=== PATIENT | female | born 1965 ===

== ENCOUNTER 2020-10-30 14:42 | Emergency (ER) | payer MEDICARE ==
[~2020-10-30] VITALS: Ht 160 cm; Wt 107.0 kg
== END 2020-10-30 16:34 | disposition home or self-care (01) ==
LOC: ER 14:42
DX: S29.012A Strain of muscle and tendon of back wall of thorax, initial encounter (principal); M54.5 Low back pain; G89.29 Other chronic pain; X50.1XXA Overexertion from prolonged static or awkward postures, initial encounter
CPT/HCPCS: 96372; 99282-25; J1885

== ENCOUNTER → 2020-12-10 | Outpatient (CLI) | payer MEDICARE, OTHER ==
[2020-12-15 16:10] LABS: HPV 16 Negative (Negative); HPV 18 Negative (Negative); HPV OTHER HR TYPES Negative (Negative)
== END | disposition home or self-care (01) ==
LOC: LAB SHORT 11:00 → LAB 11:00
PROVIDERS: Student in an Organized Health Care Education/Training Program
DX: Z01.419 Encounter for gynecological examination (general) (routine) without abnormal findings (principal)
CPT/HCPCS: 87624; G0145

== ENCOUNTER 2022-08-14 13:26 | Emergency (ER) | payer MEDICARE, OTHER ==
[~2022-08-14] VITALS: Ht 165.1 cm; Wt 68.0 kg
[~2022-08-14 13:26] MED LIST: HYDCOR2.5C PR; LISI5 PO; MIRALAX17 GM PO; OMEP20ER PO; OMEPRAZOLE DR 20 MG PO; PREGABALIN75 MG PO
[2022-08-14 14:13] LABS: BASOPHILS ABSOLUTE AUTO 0.06 K/mm3 (0.00-0.23); BASOPHILS PERCENT AUTO 1 % (0-2); EOSINOPHILS ABSOLUTE AUTO 0.19 K/mm3 (0.00-0.68); EOSINOPHILS PERCENT AUTO 3 % (0-6); Hematocrit 38.7 % (33.0-51.0); Hemoglobin 13.4 g/dL (11.5-16.0); IMMATURE GRAN ABSOLUTE AUTO 0.07 K/mm3 (0.00-0.10); IMMATURE GRAN PERCENT AUTO 1 % (0-1); LYMPHOCYTES ABSOLUTE AUTO 1.94 K/mm3 (0.84-5.20); LYMPHOCYTES PERCENT AUTO 28 % (21-46); MONOCYTES ABSOLUTE AUTO 0.64 K/mm3 (0.16-1.47); MONOCYTES PERCENT AUTO 9 % (4-13); Mean Corpuscular HGB Conc 34.6 g/dL (31.5-36.5); Mean Corpuscular Volume 87 fL (80-100); Mean Platelet Volume 10.7 fL (9.1-12.4); NEUTROPHILS ABSOLUTE AUTO 4.14 K/mm3 (1.96-9.15); NEUTROPHILS PERCENT AUTO 59 % (41-73); Platelet Count 248 K/mm3 (150-400); RDW Coefficient Variation 13.2 % (11.7-14.2); RDW Standard Deviation 42.1 fL (35.1-46.3); Red Blood Cell Count 4.46 M/mm3 (3.80-5.20); White Blood Cell Count 7.04 K/mm3 (4.00-11.30)
[2022-08-14 14:16] LABS: Albumin, Blood 3.5 g/dL (3.4-5.0); Bilirubin, Total 0.3 mg/dL (0.1-1.0); Bun/Creatinine Ratio 22.3 (12.0-20.0); Calcium, Blood 8.8 mg/dL (8.5-10.1); Creatinine, Blood 0.76 mg/dL (0.40-1.00); Globulin, Blood 3.6 g/dL (2.2-4.0); Potassium, Blood 3.9 mmol/L (3.5-5.5); Total Protein, Blood 7.1 g/dL (6.4-8.2)
[2022-08-14] MEDS ORDERED: GABAPENTIN600 MG PO (14:21)
[2022-08-14] MEDS ORDERED: CYCL10 PO (14:22)
[2022-08-14] MEDS ORDERED: CALCIUM 500 MG1 EAC2 PO (14:24)
[2022-08-14] MEDS ORDERED: FISH OIL 1,2001 EAC7 PO (14:24)
[2022-08-14 16:05] LABS: Source, Urine Straight Cath
[2022-08-14 16:13] LABS: Appearance, Urine Clear (Clear); Bilirubin, Urine Neg (Neg); Blood, Urine 1+ (Neg); Color, Urine Yellow (P-Yellow); Glucose Qualitative, Urine Neg (Neg); Ketones, Urine Neg (Neg); Leukocyte Esterase, Urine Neg (Neg); Nitrite, Urine Neg (Neg); Protein, Urine Neg (Neg); Specific Gravity, Urine 1.015 (1.003-1.022); Urobilinogen, Urine NORM (Normal)
[2022-08-14 16:53] LABS: Bacteria Few /hpf; Squamous Epithelial Cells Few /hpf (Few); White Blood Cells, Urine 0-2 /hpf (0-5)
[2022-08-20] MEDS ORDERED: ACETAMIN-CODE12.5 M3 PO (16:28)
== END 2022-08-14 18:26 | disposition home or self-care (01) ==
LOC: ER 13:26
PROVIDERS: Emergency Medicine; Student in an Organized Health Care Education/Training Program
DX: R25.1 Tremor, unspecified (principal); Z79.899 Other long term (current) drug therapy
CPT/HCPCS: 51701; 70450; 71045; 80053; 81001; 84484; 85025; 93005; 93010; 99285-25

== ENCOUNTER 2022-08-27 14:10 | Inpatient (IN) | payer MEDICARE, OTHER ==
[~2022-08-27] VITALS: Ht 162.6 cm; Wt 104.6 kg
[~2022-08-27 14:10] MED LIST changes: +ACETAMIN-CODE12.5 M3 PO; +CALCIUM 500 MG1 EAC2 PO; +CYCL10 PO; +FISH OIL 1,2001 EAC7 PO; +GABAPENTIN600 MG PO
[2022-08-27 15:46] LABS: BASOPHILS ABSOLUTE AUTO 0.04 K/mm3 (0.00-0.23); BASOPHILS PERCENT AUTO 1 % (0-2); EOSINOPHILS ABSOLUTE AUTO 0.18 K/mm3 (0.00-0.68); EOSINOPHILS PERCENT AUTO 2 % (0-6); Hematocrit 36.8 % (33.0-51.0); Hemoglobin 12.7 g/dL (11.5-16.0); IMMATURE GRAN ABSOLUTE AUTO 0.08 K/mm3 (0.00-0.10); IMMATURE GRAN PERCENT AUTO 1 % (0-1); LYMPHOCYTES ABSOLUTE AUTO 2.53 K/mm3 (0.84-5.20); LYMPHOCYTES PERCENT AUTO 32 % (21-46); MONOCYTES ABSOLUTE AUTO 0.59 K/mm3 (0.16-1.47); MONOCYTES PERCENT AUTO 8 % (4-13); Mean Corpuscular HGB 30.3 pg (26.0-34.0); Mean Corpuscular HGB Conc 34.5 g/dL (31.5-36.5); Mean Corpuscular Volume 88 fL (80-100); Mean Platelet Volume 10.4 fL (9.1-12.4); NEUTROPHILS ABSOLUTE AUTO 4.49 K/mm3 (1.96-9.15); NEUTROPHILS PERCENT AUTO 57 % (41-73); Platelet Count 252 K/mm3 (150-400); RDW Coefficient Variation 13.4 % (11.7-14.2); RDW Standard Deviation 42.9 fL (35.1-46.3); Red Blood Cell Count 4.19 M/mm3 (3.80-5.20); White Blood Cell Count 7.91 K/mm3 (4.00-11.30)
[2022-08-27 16:03] LABS: Albumin, Blood 3.3 g/dL (3.4-5.0); Bilirubin, Total 0.2 mg/dL (0.1-1.0); Bun/Creatinine Ratio 21.6 (12.0-20.0); Calcium, Blood 8.7 mg/dL (8.5-10.1); Creatinine, Blood 0.79 mg/dL (0.40-1.00); Globulin, Blood 3.3 g/dL (2.2-4.0); Total Protein, Blood 6.6 g/dL (6.4-8.2)
[2022-08-27 16:17] LABS: Magnesium, Blood 1.7 mg/dL (1.6-2.4)
[2022-08-27 16:20] LABS: Thyroid Stimulating Hormone 3.04 uIU/mL (0.360-4.800)
[2022-08-27 16:52] LABS: Source, Urine Clean Catch
[2022-08-27 16:59] LABS: Appearance, Urine Clear (Clear); Bilirubin, Urine Neg (Neg); Blood, Urine 1+ (Neg); Color, Urine Yellow (P-Yellow); Glucose Qualitative, Urine Neg (Neg); Ketones, Urine Neg (Neg); Leukocyte Esterase, Urine 3+ (Neg); Nitrite, Urine Neg (Neg); Protein, Urine Neg (Neg); Specific Gravity, Urine 1.015 (1.003-1.022); Urobilinogen, Urine NORM (Normal)
[2022-08-27 17:09] LABS: Bacteria Mod /hpf; Squamous Epithelial Cells Few /hpf (Few); White Blood Cells, Urine 25-50 /hpf (0-5)
[2022-08-27] MEDS ORDERED: ALBU90OI INH (20:53)
[2022-08-27] MEDS ORDERED: FLUT1DIS2 INH (20:54)
[2022-08-27] MEDS ORDERED: MYRBETRIQ50 MG PO (20:55)
--- NOTE | 2022-08-27 23:49 | NUR ---
SEIZURE LIKE EPISODE AT 2325 FELLOW NURSE TURNED PT LIGHT OFF AND LEFT ROOM FOR PT TO SLEEP. AT 2330 THERE WAS A RUN OF FAKE VTACH ON THE MONITOR, HIS NURSE WALKED TO PT ROOM, PT CALL LIGHT WENT OFF AND PT YELLED. PT WAS HOLDING HEAD IN HANDS AND HER BODY WAS SHAKING. SPASMS STOPPED BUT PT WAS HOLDING HEAD WITH HER HEAD SHAKING UNCONTROLABLY. PT WAS ABLE TO COMMUNICATE WITH ASL TO A STAFF NURSE BUT THEN HAD BODY CONVULSIONS. PT WAS TURNED ON SIDE AND GIVE N 2MG OF ATIVAN. PT STOPPED. VSS AND PT NEVER DESATURATED. PT REPORTS IMMENSE HEAD AND NECK PAIN BEFORE INCIDENT WITH REMAINED AFTER IT WAS OVER. PT MEDICATED WITH FENTYAL. PT STATES SHE IS LETHARGIC BUT FEELS BETTER AFTER MEDICATIONS.
[2022-08-28 04:23] LABS: BASOPHILS ABSOLUTE AUTO 0.06 K/mm3 (0.00-0.23); BASOPHILS PERCENT AUTO 1 % (0-2); EOSINOPHILS ABSOLUTE AUTO 0.28 K/mm3 (0.00-0.68); EOSINOPHILS PERCENT AUTO 4 % (0-6); Hematocrit 38.1 % (33.0-51.0); Hemoglobin 12.6 g/dL (11.5-16.0); IMMATURE GRAN ABSOLUTE AUTO 0.05 K/mm3 (0.00-0.10); IMMATURE GRAN PERCENT AUTO 1 % (0-1); LYMPHOCYTES ABSOLUTE AUTO 3.09 K/mm3 (0.84-5.20); LYMPHOCYTES PERCENT AUTO 39 % (21-46); MONOCYTES ABSOLUTE AUTO 0.64 K/mm3 (0.16-1.47); MONOCYTES PERCENT AUTO 8 % (4-13); Mean Corpuscular HGB 29.7 pg (26.0-34.0); Mean Corpuscular HGB Conc 33.1 g/dL (31.5-36.5); Mean Corpuscular Volume 90 fL (80-100); Mean Platelet Volume 10.7 fL (9.1-12.4); NEUTROPHILS ABSOLUTE AUTO 3.75 K/mm3 (1.96-9.15); NEUTROPHILS PERCENT AUTO 48 % (41-73); Platelet Count 203 K/mm3 (150-400); RDW Coefficient Variation 13.4 % (11.7-14.2); RDW Standard Deviation 44.1 fL (35.1-46.3); Red Blood Cell Count 4.24 M/mm3 (3.80-5.20); White Blood Cell Count 7.87 K/mm3 (4.00-11.30)
[2022-08-28 04:44] LABS: Albumin/Globulin Ratio 0.9 (0.8-1.8); Bilirubin, Total 0.3 mg/dL (0.1-1.0); Bun/Creatinine Ratio 21.9 (12.0-20.0); Calcium, Blood 8.1 mg/dL (8.5-10.1); Creatinine, Blood 0.73 mg/dL (0.40-1.00); Globulin, Blood 3.3 g/dL (2.2-4.0); Potassium, Blood 3.9 mmol/L (3.5-5.5); Total Protein, Blood 6.3 g/dL (6.4-8.2)
--- NOTE | 2022-08-28 06:19 | NUR ---
SHIFT SUMMARY ASSUMED CARE OF PT FROM ER. PT IS A/OX4 BUT IS DEAF AND USES ASL TO COMMUNICATE. AFTER SEIZURE EVENT, PT SLEPT WELL. PT WOULD CALL SAYING THAT SHE THOUGHT SHE FELT MORE COMING ON BUT THEN THE FEELING WOULD GO AWAY AND SHE WOULD FALL BACK ASLEEP. PT WORE CPAP T/O THE NIGHT. LUNG SOUDNS CLEAR. PT WAS SR/SB ON TELE. NO OTHER EVENTS T/O THE NIGHT.
--- NOTE | 2022-08-28 09:00 | NUR ---
UPDATE PT CALLED FOR HELP AND FELLOW RN ENTERED THE ROOM TO FIND PT CONVULSING. SHAKING STOPPED AFTER LESS THAN 1 MINUTE AND PT MEDICATED WITH ATIVAN PER EMAR. PT AWAKE AFTER SEIZURE ACTIVITY STOPPED AND ABLE TO CONVERSE. DR. COURTNEY AWARE
--- NOTE | 2022-08-28 17:32 | NUR ---
SHIFT SUMMARY PT REMAINS ALERT AND ORIENTED. SENIOR TABLEAU DEVELOPER AT BEDSIDE ALMOST ALL SHIFT. HR REMAINS NSR. BP STABLE. O2 SATS REMAIN ABOVE 90% ON RA. PT'S DAUGHTER BROUGHT IN HOME CPAP FOR TONIGHT. PT HAD 3 SEIZURES THIS SHIFT AND MEDICATED PER EMAR. PT ABLE TO REPOSITION HERSELF IN THE BED. PT UP TO BATHROOM NEEDED WITH SBA AND FWW. EEG COMPLETE THIS SHIFT. MRI UNABLE TO BE DONE DUE TO IMPLANTED STIMULATOR. DR. COURTNEY NOTIFIED. DAUGHTER UPDATED THIS SHIFT. WILL CONTINUE TO MONITOR AND REPORT TO ONCOMING PERCY
[2022-08-29 04:55] LABS: BASOPHILS ABSOLUTE AUTO 0.06 K/mm3 (0.00-0.23); BASOPHILS PERCENT AUTO 1 % (0-2); EOSINOPHILS ABSOLUTE AUTO 0.19 K/mm3 (0.00-0.68); EOSINOPHILS PERCENT AUTO 3 % (0-6); Hematocrit 38.9 % (33.0-51.0); Hemoglobin 12.8 g/dL (11.5-16.0); IMMATURE GRAN ABSOLUTE AUTO 0.06 K/mm3 (0.00-0.10); IMMATURE GRAN PERCENT AUTO 1 % (0-1); LYMPHOCYTES ABSOLUTE AUTO 2.48 K/mm3 (0.84-5.20); LYMPHOCYTES PERCENT AUTO 33 % (21-46); MONOCYTES ABSOLUTE AUTO 0.53 K/mm3 (0.16-1.47); MONOCYTES PERCENT AUTO 7 % (4-13); Mean Corpuscular HGB 29.2 pg (26.0-34.0); Mean Corpuscular HGB Conc 32.9 g/dL (31.5-36.5); Mean Corpuscular Volume 89 fL (80-100); Mean Platelet Volume 10.7 fL (9.1-12.4); NEUTROPHILS ABSOLUTE AUTO 4.15 K/mm3 (1.96-9.15); NEUTROPHILS PERCENT AUTO 56 % (41-73); Platelet Count 231 K/mm3 (150-400); RDW Coefficient Variation 13.2 % (11.7-14.2); RDW Standard Deviation 43.2 fL (35.1-46.3); Red Blood Cell Count 4.38 M/mm3 (3.80-5.20); White Blood Cell Count 7.47 K/mm3 (4.00-11.30)
[2022-08-29 04:57] LABS: Albumin, Blood 3.2 g/dL (3.4-5.0); Albumin/Globulin Ratio 0.9 (0.8-1.8); Bilirubin, Total 0.3 mg/dL (0.1-1.0); Bun/Creatinine Ratio 12.2 (12.0-20.0); Calcium, Blood 9.2 mg/dL (8.5-10.1); Creatinine, Blood 0.91 mg/dL (0.40-1.00); Globulin, Blood 3.6 g/dL (2.2-4.0); Potassium, Blood 4.1 mmol/L (3.5-5.5); Total Protein, Blood 6.8 g/dL (6.4-8.2)
--- NOTE | 2022-08-29 05:46 | NUR ---
SHIFT SUMMARY PT A&Ox4, CALLS APPROPRIATELY, COMMUNICATES NEEDS WITH HELP FROM FAMILY OR USING NOTEPAD. VSS, DENIES CP/PRESSURE/SOB, SpO2> 92% RA, USES HOME CPAP AT NOC, SB-SR 50-80's. PT WITH ONE SEIZURE AT START OF SHIFT, SUPERVISOR SHUTTLE FITTING AT BEDSIDE, REPORTED THAT IT LASTED LESS THAN 1 MINUTE, EMDICATED PER EMAR. PT NOT POSTICTAL. PT ABLE TO AMBULATE WITH SBA INTO BATHROOM. NO OTHER EVENTS THIS SHIFT. WILL REPORT TO DAY SHIFT RN.
--- NOTE | 2022-08-29 10:29 | NUR ---
UPDATE PT STATES SHE FEELS A SEIZURE COMING ON. PT STARTS TO CONVULSE AND CLUTCHES HER HEAD. IT LASTS ONLY 30 SECONDS AND SUBSIDES. PT COMPLAINS OF EXTREME HEADACHE, BUT DOES NOT WANT THE DOSE OF MORPHINE. WILL CONTINUE TO MONITOR CLOSELY
--- NOTE | 2022-08-29 14:25 | NUR ---
UPDATE PT YELLS OUT. THIS RN ENTERS ROOM AND PT BEGINS TO CONVULSE. 2MG IV MORPHINE ADMINISTERED ORDERED. SEIZURE LASTED APPROXIMATELY 1 MIN. PT AWAKE AFTER AND COMPLAINS OF INTENSE HEADACHE. WILL CONTINUE TO MONITOR CLOSELY
--- NOTE | 2022-08-29 17:08 | NUR ---
SHIFT SUMMARY PT REMAINS ALERT AND ORIENTED. PT HAD TOTAL OF 3 SEIZURES THIS SHIFT. VS STABLE. O2 SATS REMAIN ABOVE 90% ON RA. PT ONLY COMPLAINS OF PAIN AFTER SEIZURES AND DESCRIBED IT AN INTENSE HEADACHE. PT DOES STATE RIGHT BEFORE SHE HAS A SEIZURE SHE GETS A SHARP BURNING PAIN UP HER SPINE AND THEN THE SHAKING STARTS. PT ABLE TOLERATE A SHOWER THIS SHIFT. PT REQUESTED TO BE LEFT ALONE THIS AFTERNOON TO SLEEP. 1600 VITAL SIGNS NOT TAKEN PT REQUESTED NOT TO BE DISTURBED. WILL TAKE THEM SOON PT WAKES UP. WILL CONTINUE TO MONITOR CLOSELY
--- NOTE | 2022-08-29 22:02 | NUR ---
UPDATE PT HAS HAD 3 SEIZURES APPROX 1 HOUR APART. PT ABLE TO NOTIFY STAFF BEFORE EACH EVENT USING HER CALL LIGHT. EACH EVENT LASTING 1-2 MINUTES W THE FIRST TWO RESOLVING AFTER THE PT'S IV WAS FLUSHED W NS. PT'S O2 ANGELICA ANS VS UNCHANGED AT TIME OF EVENTS. PIZZA BAKER NOTIFIED
[2022-08-30 05:02] LABS: BASOPHILS ABSOLUTE AUTO 0.07 K/mm3 (0.00-0.23); BASOPHILS PERCENT AUTO 1 % (0-2); EOSINOPHILS ABSOLUTE AUTO 0.21 K/mm3 (0.00-0.68); EOSINOPHILS PERCENT AUTO 3 % (0-6); Hematocrit 37.4 % (33.0-51.0); Hemoglobin 12.8 g/dL (11.5-16.0); IMMATURE GRAN ABSOLUTE AUTO 0.06 K/mm3 (0.00-0.10); IMMATURE GRAN PERCENT AUTO 1 % (0-1); LYMPHOCYTES PERCENT AUTO 36 % (21-46); MONOCYTES ABSOLUTE AUTO 0.62 K/mm3 (0.16-1.47); MONOCYTES PERCENT AUTO 9 % (4-13); Mean Corpuscular HGB 29.9 pg (26.0-34.0); Mean Corpuscular HGB Conc 34.2 g/dL (31.5-36.5); Mean Corpuscular Volume 87 fL (80-100); Mean Platelet Volume 10.6 fL (9.1-12.4); NEUTROPHILS ABSOLUTE AUTO 3.69 K/mm3 (1.96-9.15); NEUTROPHILS PERCENT AUTO 51 % (41-73); Platelet Count 255 K/mm3 (150-400); RDW Coefficient Variation 13.3 % (11.7-14.2); RDW Standard Deviation 42.6 fL (35.1-46.3); Red Blood Cell Count 4.28 M/mm3 (3.80-5.20); White Blood Cell Count 7.25 K/mm3 (4.00-11.30)
--- NOTE | 2022-08-30 05:09 | NUR ---
SHIFT SUMMARY PT IS A/Ox4 AND FOLLOWS DIRECTIONS GIVEN BY STAFF. PT HAD SEVERAL SEIZURES WITHIN A FEW HOURS AFTER SHIFT CHANGE AVERAGING 1-2 MIN IN LENGTH. PT'S VITALS REMAINED STABLE T/O EACH SEIZURE WITH NO MENTATION CHANGES AFTER EACH EPISODE. SEE UPDATE NOTE FOR MORE DETAILS ABOUT THESE EPISODES. PT IS ABLE TO ALERT STAFF WHEN IS SHE ABOUT TO EXPERIENCE AN EPISODE AND THE PAIN RADIATES FROM HER NECK INTO HER HEAD. PT'S PAIN MEDICATED PER EMAR/MD'S ORDERS. BP AND HR REMAINED STABLE T/O THE SHIFT. NADN, VSS T/O THE SHIFT
[2022-08-30 05:39] LABS: Albumin, Blood 3.3 g/dL (3.4-5.0); Albumin/Globulin Ratio 0.9 (0.8-1.8); Bilirubin, Total 0.3 mg/dL (0.1-1.0); Calcium, Blood 9.6 mg/dL (8.5-10.1); Creatinine, Blood 0.95 mg/dL (0.40-1.00); Globulin, Blood 3.5 g/dL (2.2-4.0); Potassium, Blood 3.9 mmol/L (3.5-5.5); Total Protein, Blood 6.8 g/dL (6.4-8.2)
--- NOTE | 2022-08-30 17:03 | NUR ---
PT SUMMARY: PT HAD ONE EPISODE OF SEIZURE FOR THE SHIFT AT [id number] IT STARTED WITH HEAD TREMORS THEN PROGRESSIVELY TRANSITIONED TO VIOLENT MOVEMENT OF UPPER EXTREMITIES LIKE TANTRUMS THEN PT HELD HER NECK BY THEN END THEN YELLED "AHHH". MORPHINE 2MG WAS GIVEN AND WAS HELPFUL WITH THE NECK PAIN. PT HAD FENTANYL 25MCG BEFORE THE END OF THE SHIFT PT WAS ABLE TO COMMUNICATE PAIN IN THE NECK AND HEAD AND WAS EFFECTIVE NO SEIZURE AFTER. VITALS HAS BEEN STABLE HRR SR 70'S, SBP 130-150'S, SATS ABOVE 95% ON RA AFEBRILE. PT WAS ABLE TO WORK WITH PT/OT NO ISSUES ENCOUNTERED WOULD PROBABLY GET CLEARED FROM THERAPY OF THIS TIME PER THERAPIST. PROPERTY ANALYST WAS IN THE ROOM AT SCHEDULED TIMES, DAUGHTER JACINTO CAME IN TO VISIT PT AND WAS ABLE TO UPDATE REGARDING PT'S STATUS. PT EATING AND DRINKING PO FLUIDS TOLERATED, NO OTHER ISSUES ENCOUNTERED, ABLE TO MAKE NEEDS KNOWN, WILL CONTINUE TO MONITOR
--- NOTE | 2022-08-30 21:45 | NUR ---
PT HAD SEIZURE AT 2033; MEDICATED PER EMAR. PT REPORTED HEADACHE/NECK PAIN 3-5 MINUTES BEFORE ACTIVITY STARTED. AT 2115, AGAIN PT HAD SEIZURE AND REPORTED HEADACHE/NECK PAIN JUST PRIOR TO START OF SEIZURE. MEDICATED PER EMAR 2138; PT HAD 3 EPISODES OF SEIZURE ACTIVITY LASTING UNTIL 2141.
[2022-08-31 05:29] LABS: BASOPHILS ABSOLUTE AUTO 0.06 K/mm3 (0.00-0.23); BASOPHILS PERCENT AUTO 1 % (0-2); EOSINOPHILS ABSOLUTE AUTO 0.22 K/mm3 (0.00-0.68); EOSINOPHILS PERCENT AUTO 3 % (0-6); Hematocrit 38.3 % (33.0-51.0); Hemoglobin 13.2 g/dL (11.5-16.0); IMMATURE GRAN ABSOLUTE AUTO 0.06 K/mm3 (0.00-0.10); IMMATURE GRAN PERCENT AUTO 1 % (0-1); LYMPHOCYTES ABSOLUTE AUTO 2.66 K/mm3 (0.84-5.20); LYMPHOCYTES PERCENT AUTO 36 % (21-46); MONOCYTES ABSOLUTE AUTO 0.59 K/mm3 (0.16-1.47); MONOCYTES PERCENT AUTO 8 % (4-13); Mean Corpuscular HGB 29.9 pg (26.0-34.0); Mean Corpuscular HGB Conc 34.5 g/dL (31.5-36.5); Mean Corpuscular Volume 87 fL (80-100); Mean Platelet Volume 10.7 fL (9.1-12.4); NEUTROPHILS ABSOLUTE AUTO 3.82 K/mm3 (1.96-9.15); NEUTROPHILS PERCENT AUTO 52 % (41-73); Platelet Count 247 K/mm3 (150-400); RDW Coefficient Variation 12.9 % (11.7-14.2); RDW Standard Deviation 40.8 fL (35.1-46.3); Red Blood Cell Count 4.42 M/mm3 (3.80-5.20); White Blood Cell Count 7.41 K/mm3 (4.00-11.30)
--- NOTE | 2022-08-31 05:41 | NUR ---
SHIFT SUMMARY PT A&0 X4. INTERACTING AND RESPONDING TO QUESTIONS APPROPRIATELY. PT HAD 5 EPISODES OF SEIZURE LIKE ACTIVITY BETWEEN 2029 - 2149. PT REPROTS PAIN IN NECK/HEAD BEFORE EPISODES BEGIN, PT BEGINS WITH SMALL TREMOR LIKE ACTIVITY WHICH THEN BECOMES SHAKING/SEIZURE LIKE ACTIVITY. PT ALSO GRABS HEAD AND NECK AFTER EVENT. MEDICATED PER EMAR FOR EACH EPISODE. AFTER LAST EPISODE, NO MORE OCCURENCES THROUGHOUT SHIFT. VSS; WHILE SLEEPING PT EXPERIENCED BRADYCARDIA W/LOW HR OF 48 BUT HR INCREASED AND PT DID NOT SUSTAIN. PT ABLE TO MAKE NEEDS KNOWN AND USES CALL LIGHT APPROPRIATELY. PT UP TO BATHROOM W/FWW. PT TOLERATED WELL. CALL LIGHT IN REACH AND BED IN LOW POSITION.
[2022-08-31 06:00] LABS: Albumin, Blood 3.5 g/dL (3.4-5.0); Bilirubin, Total 0.2 mg/dL (0.1-1.0); Bun/Creatinine Ratio 19.5 (12.0-20.0); Calcium, Blood 9.3 mg/dL (8.5-10.1); Creatinine, Blood 0.87 mg/dL (0.40-1.00); Globulin, Blood 3.4 g/dL (2.2-4.0); Potassium, Blood 4.1 mmol/L (3.5-5.5); Total Protein, Blood 6.9 g/dL (6.4-8.2)
--- NOTE | 2022-08-31 10:11 | NUR ---
0950 OUTSIDE MACHINIST SUPERVISOR CONTACTED THIS RN THAT PT WAS HAVING A SEIZURE. UPON ENTERING ROOM, PT BODY WAS CONVULSING WHILE SITTING IN CHAIR. OUTSIDE MACHINIST SUPERVISOR WAS HOLDING PT'S ARMS. PT WAS ABLE TO EXPRESS THAT SHE HAD PAIN IN HER NECK BY REACHING UP WITH HER RIGHT HAND TO THE BACK RIGHT SIDE OF HER NECK WHILE STILL CONVULSING. AFTER SEIZURE-LIKE EPISODE WAS FINISHED ABOUT 09, PT SIGNALED STAFF TO WRITE THE TIME ON THE WHITE BOARD, TIME ON WHITE BOARD FOR FAMILY. USING A NOTED PAD, THIS ASKED IF PT KNEW THE EPISODE WAS COMING ON BEFORE HAND, PT NODDED HEAD YES AND SIGNALED AGAIN TOWARD HER NECK WITH HER HANDS. PT CLINCHED HER HANDS INDICATING THAT HER NECK MUSCLE CRAMPS UP, VERIFIED BY ASKING WITH NOTE PAD, PT ANSERED YES.
--- NOTE | 2022-08-31 11:17 | NUR ---
1038 PT HIT CALL LIGHT. THIS RN ENTERED ROOM AND PT WAS SITTING IN CHAIR WITH HER HEAD TILTED SLIGHT UPWARDS AND HEAD WAS FRANTICALLY SHINKING BACK AND FORTH. TATYANA RN WAS ALREADY PRESENT IN ROOM. PT WAS ABLE TO MOAN AND BRING RIGHT HAND UP TOWARDS NECK AGAIN TO INDICATE PAIN IN HER NECK. EP[ISODE LASTD ABOUT 2 MINUTES.
--- NOTE | 2022-08-31 15:43 | NUR ---
1535 CALLED BY INNER LAYER SCRUBBER TENDER ON VOICERA. INNER LAYER SCRUBBER TENDER REPORTED PT WAS ABOUT TO HAVE ANEPISODE. UPON ENTERING PT ROOM, PT WAS OBSERVED TO HAVE SMALL TREMORS. PT HEAD BEGAN TO TILT BACK AND CONVULSE SIDE TO SIDE. PT UPPER EXTREMITIES CONTINUED TO TREMO AND LOWER EXREMITIES WER STIFF. EPISODE LASTED LESS THAN A MINUTE. PT INSTANTLY GRABBED BACK OF NECK WITH RIGHT HAND AND MOANED. MORPHINE GIVEN PER EMAR. WHILE GETTING MORPHINE READY, PT SNAPPED HER FINGERS TO GET ATTENTION OF STAFF. PT WAS OBSERVED TO HAVE THE LEFT SIDE OF HER MOUTH TWITCHING. THIS RN GESTURED WITH MY HAND THE CLINCHING SUKHDEV TTHE PT PREVIOUSLY DISPLAYED FOR HER PAIN. PT NODDED YES. THIS RN POINTED AT HIS SPINE FROM NECK DOWN TO HIS LOWER BACK, PT AGAIN NODDED YES. LEFT FACE TWITCH LASTED LESS THAN A MINUTE WELL.
--- NOTE | 2022-08-31 17:19 | NUR ---
SHIFT SUMMARY PT A/OX 4 AND COOPERATIVE OF CARE. PT HAD 3 SEIZURE-LIKE EPISODES TODAY, PT PT TO USE CALL LIGHT TO LET STAFF KNOW THAT THE EPISODE WAS COMING, SEE PREVIOUS NOTES. VSS THROUGHOUT SHIFT WITHG O2 SATS IN THE 90'S ON RA. PT ABLE TO AMBULATE AROUND THE PCU/ICU HALLWAYS USING A FWW, GAIT BELT, AND WHEELCHAIR BEHIND PT, PT TOLERATED WELL. PT ABLE TO COMMUNICATE VIA MITER SAWYER AND NOTE PAD. PT REPORTED TO MITER SAWYER THAT SHE "GOT LIGHTHEADED WHILE WALKING FROM TOILET TO THE DOOR." NO RPEORT OF CHEST PAIN/PRESSURE THROUGHOUT SHIFT. NO RPEORT SOB/DYSPNEA THROUGHOUT SHIFT.
[2022-09-01 03:45] LABS: BASOPHILS ABSOLUTE AUTO 0.06 K/mm3 (0.00-0.23); BASOPHILS PERCENT AUTO 1 % (0-2); EOSINOPHILS ABSOLUTE AUTO 0.19 K/mm3 (0.00-0.68); EOSINOPHILS PERCENT AUTO 2 % (0-6); Hematocrit 36.1 % (33.0-51.0); Hemoglobin 12.4 g/dL (11.5-16.0); IMMATURE GRAN ABSOLUTE AUTO 0.06 K/mm3 (0.00-0.10); IMMATURE GRAN PERCENT AUTO 1 % (0-1); LYMPHOCYTES PERCENT AUTO 33 % (21-46); MONOCYTES ABSOLUTE AUTO 0.52 K/mm3 (0.16-1.47); MONOCYTES PERCENT AUTO 7 % (4-13); Mean Corpuscular HGB 29.8 pg (26.0-34.0); Mean Corpuscular HGB Conc 34.3 g/dL (31.5-36.5); Mean Corpuscular Volume 87 fL (80-100); Mean Platelet Volume 10.2 fL (9.1-12.4); NEUTROPHILS ABSOLUTE AUTO 4.41 K/mm3 (1.96-9.15); NEUTROPHILS PERCENT AUTO 56 % (41-73); Platelet Count 240 K/mm3 (150-400); RDW Coefficient Variation 13.1 % (11.7-14.2); RDW Standard Deviation 41.1 fL (35.1-46.3); Red Blood Cell Count 4.16 M/mm3 (3.80-5.20); White Blood Cell Count 7.84 K/mm3 (4.00-11.30)
[2022-09-01 04:16] LABS: Albumin/Globulin Ratio 0.9 (0.8-1.8); Bilirubin, Total 0.1 mg/dL (0.1-1.0); Calcium, Blood 8.1 mg/dL (8.5-10.1); Creatinine, Blood 0.92 mg/dL (0.40-1.00); Globulin, Blood 3.4 g/dL (2.2-4.0); Potassium, Blood 4.2 mmol/L (3.5-5.5); Total Protein, Blood 6.4 g/dL (6.4-8.2)
--- NOTE | 2022-09-01 05:15 | NUR ---
SHIFT SUMMARY PT A&O X4. FAMILY AND EDUCATIONAL RESOURCE CENTER TEACHER AT BEDSIDE. VSS. ALTHOUGH DURING THE NIGHT WHEN PT IS ASLEEP HR DECREASES INTO 50'S. CPAP USED DURING THE NIGHT. PT DENIES SOB, CHEST PAIN OR CHEST PRESSUE. REPORTS SEVERE PAIN IN NECK AND HEAD. REPORTS SHARP, TENSE PAIN THAT RADIATES UP AND RATES PAIN 10/10. PT REPORTS ABOVE PAIN THEN WITHIN A FEW MINUTES SEIZURE LIKE ACTIVITY BEGINS. PT HAD 2 EPISODES OF SEIZURE LIKE ACTIVITY, BOTH LASTING ABOUT 1 MINUTE. EPISODES ABOUT 3 HOURS APART; LAST EPISODE WAS AT 2352. AFTER EPISODE PT GRABS NECK OR HEAD, THEN STATES "IT HURTS BAD". MEDICATED PER EMAR FOR EPISODES AND PAIN. PT HAS BEEN RESTING THROUGHOUT REST OF SHIFT, W/OUT ANY RECURRENT EPISODES. CALL LIGHT IN REACH
--- NOTE | 2022-09-01 06:38 | NUR ---
PT HAD EPISODE OF SEIZURE LIKE ACTIVITY AT 0633 LASTING UNTI ABOUT 0634. PT REPORTS STARTED WITH PAIN, A TENSE PAIN IN BACK AND NECK. AFTER EPISODE PT GRABBED BACK OF NECK IF IN SEVERE PAIN. AFTER EPISODE PT ORIENTED AND ABLE TO HOLD CONVERSATION AND ANSWER QUESTIONS APPROPRIATELY. PT MEDICATED PER EMAR FOR PAIN/AURA
--- NOTE | 2022-09-01 11:03 | NUR ---
SONA DURING MORNING REPORT NOC RN REPORTED PT HAVING A SEIZURE-LIKE CONVULSION AROUND 0630 THAT LASTED ABOUT A MINUTE LONG. AFTER SHIFT CHAGE, PT HAD MULTIPLE SEIZURE-LIKE CONVULSIONS; AT 0930, 0936, 1019, AND 1033, ALL LASTING ABOUT 1 MINUTE. PT COMPLETELY A/O AFTER EACH EPISODE AND ABLE TO COMMUNICATE WITH STAFF VIA PORTABLE FEED MILL OPERATOR OR FAMILY MEMBERS. PT REPORTS THAT THE EPISODES ALWAYS START WITH A PAIN IN THE RIGHT DORSAL SIDE OF HER NECK. PT REPORTS THAT THE PAIN RADIATES OVER HER HEAD AND FEELS HOT OVER HER HEAD. PT ALSO REPORTS THAT SHE CAN USUALLY FEEL THE SEIZURE COMING. WHILE OBSERVING PT SEIZURE-LIKE ACTIVITY IS COMING ON, PT IS NOTICED HAVING SMALL TREMORS TO LEFT EXTREMITY AND SOMETIMES BLE. PT LEFT SIDE OF FACE HAS HAD PERIODS OF TWITCHING JUST BEFORE SEIZURE-LIKE EPISODE BEGINS. PT REPORTS THAT FACE TWITHCING IS SOMETHING NEW SINCE BEING ADMITTED TO HOSPITAL. PRESENT IN ROOM DURING 1033 SEIZURE-LIKE EPISODE AND WAS BALE TO ASK PT QUESTIONS WHILE FAMILY INTERPRETED.
[2022-09-01 11:32] LABS: SARS-Cov-2 (COVID-19) PCR, MMC NEGATIVE (NEGATIVE)
--- NOTE | 2022-09-01 17:41 | NUR ---
UPDATE CALL FROM [facility] THAT PT WAS HAVING "A SEIZURE" AT 1736. UPON ENTERING ROOM, PT WAS OBSERVED HAVING THE SEIZURE-LIKE ACTIVITY THAT LASTED FOR 45 SECONDS. THIS RN GAVE MORPHINE PER ORDERS. WHILE GIVING THE MORHINE, PT HAD ANOTHER EPISODE THAT LASTED 45 SECONDS. PT REPORTS THAT SHE "IS CONSCIOUS" DURING THE EPISODES BUT HAS HAD PREVIOUS SEIZURE-LIKE EPISODES WHERE SHE "BLACKS OUT". PT HR TACHS UP TO 120-130 AT THE END OF EPISODE BUT RETURNS TO 60-70'S QUICKLY.
--- NOTE | 2022-09-01 18:09 | NUR ---
SHIFT SUMMARY PT A/OX4 AND COOPERATIVE OF CARE. VSS THROUGHOUT SHIFT WITH O2 SATS >95% ON RA. PT HAD 4 SEIZURE-LIKE EPISODES THIS MORNING, ALL ABOUT 1 MINUTE LONG. PT HAD 2 MORE EPISODE THIS EVENING ALSO LASTING ABOUT [address] PRESENT FOR ONE OF THE MORNING EPISODES. PT AND PT FAMILY UPDATED ON DR PHONE CALL TO DOCTOR FROM [facility] THAT THEY RECOMMEND UPPING THE GABAPENTIN DOSE. FAMILY PLANNING ON HAVING A MEETING TOMORROW MORNING, FIELD ACCOUNT MANAGER PLANNING ON BEING PRESENT. PT WAS BEEN UP TO RECLINER AND IS ABLE TO TRANSFER HERSELF TO AND FROM THE BED ON HER OWN, SBA AND TOLERATES WELL.
--- NOTE | 2022-09-01 22:30 | NUR ---
UPDATE PT BEGAN HAVING SEIZURE. SHELLFISH HARVESTER AT BEDSIDE, PT LYING ON L SIDE. PHYSICIAN NOTIFIED. INSTRUCTED TO GIVE 2MG OF ATIVAN AT 2215. SEE PRIMARY RN'S NOTES REGARDING DURATION OF SEIZURES. VSS.
--- NOTE | 2022-09-01 22:51 | NUR ---
UPDATE OF THIS NOTE PT HAD 15 SEIZURES RANGING FROM 3 SECS TO 2 MIN IN LENGTH. PT DISPLAYS CLONIC BEHAVIORS AND TREMORS/TWITCHES WITH EACH EPISODE. PT IS AWARE OF THEIR ONSET AND IS COMPLETLY ALERT AFTER EACH EPISODE. PT COMMUNICATED THAT SHE IS AWARE OF EVERYONE IN THE ROOM WHEN SEIZURES START AND EXPERIENCES SHARP PAIN IN THE BACK OF HER NECK THAT RADIATES TO THE TOP OF HER SKULL. PT ASLO CLAIMS SHE EXPERIENCES A TINGLING/PINS AND NEEDLE SENSATION STARTING FROM HER HIPS AND RADIATING DOWN BOTH OF HER LEGS. MOST RECENTLY THE PT COMMUNICATED SHE HAS BEEN EXPERIENCING AN INTENSE 10/10 HEADACHE AND SEES OCCASIONAL SPOTS. HAS BEEN NOTIFIED OF PT'S CHANGE IN CONDITION AND HER PAIN HAS BEEN MANAGED PER EMAR.
--- NOTE | 2022-09-01 23:38 | NUR ---
DOCUMENTATION OF CONVULSIVE EPISODES PATIENT WAS AWARE OF ONCOMING EPISODES PRIOR TO EACH EPISODE AND WAS ABLE TO SIGNAL THE ONSET TO THE STAFF BY WAVING HER FINGERS. NO LOSS OF CONSCIOUSNESS. NO BOWEL OR BLADDER INCONTINENCE. NO POSTICTAL PHASE. WHEN ASKED, PATIENT STATES THAT SHE IS FULLY AWARE OF THE CONVULSIONS AND OF STAFF BEING AT THE BEDSIDE DURING THE EPISODES. EACH EPISODE COINCIDES WITH COMPLAINT OF 10/10 PAIN TO PATIENT'S POSTERIOR ASPECT OF THE NECK AND SHOOTING TO TOP OF HEAD. PATIENT REPORTS PAIN TO BE SHARP AND BURNING. CONVULSIONS AFFECT HEAD AND NECK PRIMARILY, WITH HEAD AND NECK MOVING RAPIDLY FROM SIDE TO SIDE. LEADING UP TO THE CONVULSIONS, TREMORING CAN BE SEEN IN THE LEFT CHEEK INTERMITENTLY. THIS DOES NOT OCCUR WITH EVERY CONVULSIVE EPISODE. SOME, NOT ALL, EPISODES ALSO INCLUDE INTENSE TREMORING TO THE BILATERAL LOWER EXTREMITIES (BLE). THE TREMORING OF THE BLE IS ACCOMPANIED BY PATIENT COMPLAINING OF TINGLING AND PAIN SHOOTING DOWN THE BACK OF BOTH LEGS. PATIENT DENIED PAIN IN LOWER BACK, MORESO STARTING AT THE HIPS AND SHOOTING DOWN THE LEGS. AT APPROXIMATELY 20:45 CALL MADE TO MD RESIDENT Bailey COLLADO. PATIENT HAD HAD 8 CONVULSION EPISODES BETWEEN 19:58 AND 20:25. MEDICATED FOR PAIN PER EMAR. AT THE TIME, PAIN PERSISTED AT 10/10 TO THE HEAD AND NECK, WITH SOME INTERMITTENT SHOOTING PAIN DOWN THE BACK OF BLE. PAIN MEDICATION ORDERS REVIEWED AND ORDER RECEIVED TO INCRESE FREQUENCY OF IV FENTANYL DOSING AND DR. COLLADO STATED SHE WOULD COME SEE THE PATIENT. CHRONICLE OF CONVULSIVE EPISODES. 19:58 - 26 SECONDS: LEFT FACIAL TWITCHING, HEAD & NECK TREMORS. 20:05 - 40 SECONDS: HEAD & NECK RAPID MOVEMENT SIDE TO SIDE, BLE TREMORS 20:07 - 20 SECONDS: HEAD & NECK RAPID MOVEMENT SIDE TO SIDE, BLE TREMORS 20:08 - 15 SECONDS: HEAD & NECK RAPID MOVEMENT SIDE TO SIDE, BLE TREMORS 20:19 - 13 SECONDS: HEAD & NECK RAPID MOVEMENT SIDE TO SIDE, BLE TREMORS 20:20 - 11 SECONDS: HEAD & NECK RAPID MOVEMENT SIDE TO SIDE 20:24 - 48 SECONDS: HEAD & NECK RAPID MOVEMENT SIDE TO SIDE, BLE TREMORS 20:25 - 40 SECONDS: HEAD & NECK RAPID MOVEMENT SIDE TO SIDE, BLE TREMORS 21:20 - 39 SECONDS: HEAD & NECK RAPID MOVEMENT SIDE TO SIDE 22:07 - 26 SECONDS: HEAD & NECK RAPID MOVEMENT SIDE TO SIDE, BLE TREMORS 22:08 - 28 SECONDS: HEAD & NECK RAPID MOVEMENT SIDE TO SIDE, BLE TREMORS 22:10 - 42 SECONDS: HEAD & NECK RAPID MOVEMENT SIDE TO SIDE, BLE TREMORS 22:23 - 47 SECONDS: HEAD & NECK RAPID MOVEMENT SIDE TO SIDE 22:25 - 11 SECONDS: HEAD & FACE TREMORS 22:30 -110 SECONDS: HEAD & FACE TREMORS, BLE TREMORS IN LAST 20 SECONDS 22:37 - 43 SECONDS: HEAD & FACE TERMORS
--- NOTE | 2022-09-02 05:21 | NUR ---
SHIFT SUMMARY PT IS A/Ox4 AND FOLLOWS DIRECTIONS GIVEN BY MEMBERS OF STAFF. AT THE START OF THE SHIFT, PT HAD ~15 SEIZURES THAT RANGED FROM 30SEC TO 2MIN. SEE UPDATE NOTE ABOUT SPECIFIC DETAILS ABOUT THE SEIZURES WELL PT'S RESPONSE TO SEIZURE LIKE EPISODES. VSS REMAINED STABLE T/O EACH EPISODE AND MD WAS NOTIFIED. PT IS SCEDULED TO HAVE FAMILY MEETING THE AM OF 09/02/22 ABOUT PT'S PLAN OF CARE. PT HAS COMMUNICATED VIA FURNITURE INSPECTOR TO 3 NURSES (DEEPTHI, ANDI, AND MYSELF) ABOUT HER DESIRE TO STAY HERE AT [facility] UNTIL A BED AT [facility] BECOMES AVAILABLE FOR THE PT TO TRANSFER TO RECEIVE HIGHER LEVEL OF CARE. WILL PASS THIS INFORMATION ALONG TO DAYSHIFT NURSE IN ORDER FOR THE PT TO RECEIVE ADEQUATE REPRESENTATION. PT'S HR CLIBED TO 120'S DURING A COUPLE OF HER SEIZURE LIKE EPISODE, BUT OVERALL HER VSS HAVE REMAINED STABLE T/O THE SHIFT. RUDDY
--- NOTE | 2022-09-02 09:20 | NUR ---
UPDATE PT HAVING MULTIPLE EPISODES OF SEIZURE LIKE ACTIVITY LASTING 30 SECONDS TO THE LONGEST BEING 1 MINUTE. PT GRASPS HER HEAD AFTER AND COMPLAINS OF HEADACHE. PT MEDICATED PER EMAR FOR PAIN AND SEIZURE. DR. RIVERA NOTIFIED. WILL CONTINUE TO MONITOR CLOSELY
--- NOTE | 2022-09-02 10:45 | NUR ---
UPDATE PT CONTINUES TO HAVE SEIZURE LIKE ACTIVITY. PT HAD 3 EPISODES OF FULL BODY CONVULSION LASTING 30-45 SECONDS AND MINUTES APART. PT AWAKE AND CONVERSING AFTER EPISODE AND COMPLAINS OF NUMBNESS AND TINGLING TO RIGHT LEG UP TO HER ABDOMEN.
--- NOTE | 2022-09-02 12:45 | NUR ---
UPDATE PT HAD ANOTHER SIEZURE LASTING 2 MINUTES. PT AWAKE AFTER AND COMPLAINGING OF NECK PAIN AND HEADACHE
--- NOTE | 2022-09-02 14:52 | NUR ---
UPDATE PT HAD TWO MORE SEIZURES LASTING 45 SECONDS EACH. PT MEDICATED PER EMAR. PT COMPLAINS OF TINGLING IN HER RIGHT LEG AFTER SEIZURE.
--- NOTE | 2022-09-02 15:36 | NUR ---
UPDATE PT HAD TWO MORE SEIZURES 4 MINUTES APART LASTING 15 SECONDS EACH
--- NOTE | 2022-09-02 16:30 | NUR ---
UPDATE PT HAD ANOTHER SEIZURE LASTING 1 MINUTE 5 SECONDS. THEN 2 MINUTES LATER PT HAS ANOTHER SEIZURE LASTING 30 SECONDS
--- NOTE | 2022-09-03 02:49 | NUR ---
DOCUMENTATION OF CONVULSIVE EPISODES PATIENT WAS AWARE OF ONCOMING EPISODES PRIOR TO EACH EPISODE AND WAS ABLE TO SIGNAL THE ONSET TO THE STAFF BY WAVING HER FINGERS. NO LOSS OF CONSCIOUSNES NO BOWEL OR BLADDER INCONTINENCE. NO POSTICTAL PHASE. PATIENT STATES THAT SHE IS AWARE OF STAFF BEING AT THE DURING THE EPISODES AND THAT CAN FEEL THE PAIN IN HER HEAD WORSENING THE TREMORS GET MORE INTENSE AND CONVULSIONS START. PATIENT REPORTS 10/10 PAIN TO THE POSTERIOR ASPECT OF THE NECK, SHOOTING TO TOP OF HEAD AND THEN "THE WHOLE HEAD." PATIENT DESCRIBES THE PAIN SHARP AND BURNING. PATIENT ALSO REPORTS EXPERIENCING TINGLING FEELING TO RIGHT SIDE OF BODY FROM HIPS TO FACE. CONVULSIONS AFFECT HEAD AND NECK PRIMARILY, WITH HEAD AND NECK MOVING RAPIDLY FROM SIDE TO SIDE. SOME EPISODES ALSO INCLUDE INTENSE TREMORING TO THE BILATERAL LOWER EXTREMITIES (BLE). THE TREMORING OF THE BLE IS SMOOTH AND RHYTHMIC, NOT JERKING IN NATURE. PATIENT DENIES THE PAIN SHOOTING DOWN HER LEGS THAT SHE EXPERIENCED (AND THIS RN WITNESSED) ON THE EVENING OF 09/01/22. CHRONICLE OF CONVULSIVE EPISODES. 18:48 - 90 SECONDS: NOT WITNESSED BY THIS RN 18:53 - 30 SECONDS: NOT WITNESSED BY THIS RN 18:54 - 45 SECONDS: NOT WITNESSED BY THIS RN 19:05 - 120 SECONDS: NOT WITNESSED BY THIS RN 19:09 - 45 SECONDS: HEAD TREMORS INTO HEAD & NECK RAPID MOVEMENT SIDE TO SIDE 19:13 - 75 SECONDS: HEAD & NECK RAPID MOVEMENT SIDE TO SIDE, BLE TREMORS 19:16 - 105 SECONDS: HEAD & NECK RAPID MOVEMENT SIDE TO SIDE, BLE TREMORS 19:25 MEDICATIONS ADMINISTERED: SEE EMAR 20:24 - UNKNOWN X 2-3 EPISODES NOT WITNESSED BY THIS RN 20:35 - 120 SECONDS: HEAD TREMORS INTO HEAD & NECK RAPID MOVEMENT SIDE TO SIDE 20:38 - 30 SECONDS: HEAD & NECK RAPID MOVEMENT SIDE TO SIDE, BLE TREMORS, CRIED OUT IN PAIN, TEARFUL 20:42 - 90 SECONDS: HEAD & NECK RAPID MOVEMENT SIDE TO SIDE, BLE TREMORS 20:48 - 60 SECONDS: HEAD TREMORS INTO HEAD & NECK RAPID MOVEMENT SIDE TO SIDE 20:50 - 45 SECONDS: HEAD TREMORS INTO HEAD & NECK RAPID MOVEMENT SIDE TO SIDE 20:53 - 80 SECONDS: HEAD & NECK RAPID MOVEMENT SIDE TO SIDE, BLE TREMORS 20:54 - 40 SECONDS: HEAD & NECK RAPID MOVEMENT SIDE TO SIDE 21:00 FENTANYL ADMINISTERED, REDUCED STIMULATION IN THE ROOM AND TURNED OFF LIGHTS. CALL TO MD HILLMAN REGARDING FREQUENCY OF EPISODES. ADVISED MD THAT IV VALIUM SEEM TO PROVIDE SOME RELIEF LAST NIGHT AND EARLIER TODAY. PATIENT DOES HAVE ORDER FOR ORAL VALIUM THREE TIMES A DAY. I AM HESITANT TO ADMINISTER ORAL MEDICATION AT THIS TIME DUE TO FREQUENCY OF EPISODES. ORDER RECEIVED FOR 5 MG IV VALIUM. UPON RETURN TO PATIENT'S ROOM, SHE WAS RESTING COMFORTABLY AND DECISION MADE TO HOLD OFF ON ADMINISTERING VALIUM AT THAT TIME. AT THE TIME OF THIS NOTE, PATIENT CONTINUES TO REST COMFORTABLY WITH CPAP IN PLACE. NO ADDITIONAL EPISODES SINCE 21:00. WILL CONTINUE TO MONITOR.
[2022-09-03 05:05] LABS: BASOPHILS ABSOLUTE AUTO 0.07 K/mm3 (0.00-0.23); BASOPHILS PERCENT AUTO 1 % (0-2); EOSINOPHILS ABSOLUTE AUTO 0.24 K/mm3 (0.00-0.68); EOSINOPHILS PERCENT AUTO 3 % (0-6); Hematocrit 37.1 % (33.0-51.0); Hemoglobin 12.7 g/dL (11.5-16.0); IMMATURE GRAN ABSOLUTE AUTO 0.04 K/mm3 (0.00-0.10); IMMATURE GRAN PERCENT AUTO 1 % (0-1); LYMPHOCYTES ABSOLUTE AUTO 1.68 K/mm3 (0.84-5.20); LYMPHOCYTES PERCENT AUTO 23 % (21-46); MONOCYTES ABSOLUTE AUTO 0.59 K/mm3 (0.16-1.47); MONOCYTES PERCENT AUTO 8 % (4-13); Mean Corpuscular HGB Conc 34.2 g/dL (31.5-36.5); Mean Corpuscular Volume 88 fL (80-100); NEUTROPHILS ABSOLUTE AUTO 4.85 K/mm3 (1.96-9.15); NEUTROPHILS PERCENT AUTO 65 % (41-73); RDW Coefficient Variation 13.2 % (11.7-14.2); RDW Standard Deviation 42.3 fL (35.1-46.3); Red Blood Cell Count 4.24 M/mm3 (3.80-5.20); White Blood Cell Count 7.47 K/mm3 (4.00-11.30)
[2022-09-03 05:16] LABS: Albumin, Blood 3.1 g/dL (3.4-5.0); Albumin/Globulin Ratio 0.9 (0.8-1.8); Bilirubin, Total 0.3 mg/dL (0.1-1.0); Calcium, Blood 8.7 mg/dL (8.5-10.1); Creatinine, Blood 0.95 mg/dL (0.40-1.00); Globulin, Blood 3.3 g/dL (2.2-4.0); Potassium, Blood 4.3 mmol/L (3.5-5.5); Total Protein, Blood 6.4 g/dL (6.4-8.2)
[2022-09-03 05:20] LABS: Mean Platelet Volume 10.5 fL (9.1-12.4); Platelet Count 221 K/mm3 (150-400)
--- NOTE | 2022-09-03 14:14 | NUR ---
I was called to speak with the family of PCU 10; The daughter is very upset feeling like we are preventing her from seeing and taking her mother to another hospital. I spoke with the patient, she told me she did not want to leave unless the accepting hospital had a bed, also that she had asked for her her kids not to come into the room as they had been upsetting her. On return to daughter to speak with her mother. Dr. Andrade was talking with them. We all went into the patients room and clarified the family and patients concerns. The patient would only be willing to go to [facility] if they had a bed or an ambulance brought her up there. The son and daughter left the room.
--- NOTE | 2022-09-03 15:13 | NUR ---
PT'S SUMMARY OF SEIZURE/CONVULSION EVENT: 09/03/22 (DAYSHIFT) (FENTANYL 50MCG WAS GIVEN FOR 06/14 NECK PAIN) 0856: 54 SECONDS PT IN BED MORPHINE 2MG WAS GIVEN PT REPORTED PAIN STARTS FROM BACK UP TO NECK AND GETS WORSE AFTER THE SEIZURE LIKE ACTIVITY. 1024: 1 FULL MINUTE PT WAS IN THE BATHROOM SEIZURE HAPPENED AFTER PT HAD A BOWEL MOVEMENT PARENTING SKILLS INSTRUCTOR WAS HELPING HER BACK IN BED, PARENTING SKILLS INSTRUCTOR YELLED OUT FOR HELP PT WAS ASSISTED BACK TO BED AFTER SEIZURE, PT INSTRUCTED TO USE COMMODE FROM NOW ON WITH GAIT BELT ON PT AGREEABLE 1027: 30 SECS FENTANYL 50MCG GIVEN THEN FAMILY CAME IN THE ROOM AND PT HAD MULTIPLE LONGER EPISODES POSSIBLY DUE TO STIMULATION 1100: 45 SEC MORPHINE 2MG IV GIVEN 1106: 35 SEC 1124: 1MIN 54 SEC 1128: 2 MIN 20 SEC 1140: 1 MIN 55 SEC 1148: 2MINS 45 SEC EXPERIMENTAL MECHANIC SPACECRAFT WAS ON THE PHONE WITH DR JOHNSON TO REPORT MULTIPLE CONSISTENT EPISODES OF SEIZURE/CONVULSION AND THAT THE FAMILY IS CONCERNED WANTING TO TAKE THE PT UP IN [place] TO THE ER BUT WONT SIGN AMA FORM, DAUGHTER SAILAJA WAS INSTRUCTED TO WAIT UNTIL THE PROVIDER COMES BACK AT 2PM TO HAVE DISCUSSION WITH THE PT THE RUBBER THREAD SPOOLER IS ALSO AVAILABLE. AND ORDER FOR ONE TIME VALIUM 5MG WAS GIVEN. 1218: 1 FULL MINUTE MORPHINE 2MG WAS GIVEN 1238: 1 MINUTE 45 SECONDS 1239: 45 SECONDS 1249: 1 MINUTE 30 SECONDS FENTANYL 50 MCG WAS GIVEN 1250: 1 MINUTE 30 SECONDS 1510: 1 MINUTE 30 SECONDS MORPHINE 2MG WAS GIVEN 1525: 30 SECONDS FENTANYL 50MCG WAS GIVEN ALL SEIZURE/CONVULSION LIKE ACTIVITY WITH NO POST ICTAL STATE, PT IS FULLY FUNCTIONAL AND AWARE DURING THESE EPISODES, YELLS BY THE END OF EACH ACTIVITY AND HOLDS EITHER HEAD AND NECK. NEURO HAS BEEN WNL, VITALS HRR SR 70'S WILL INCREASE UP TO 120'S WITH VIOLENT SEIZURE ACTIVITY. SATS ABOVE 95% ON RA, AFEBRILE, SBP 120'S-130'S. PT WAS GOOD AT CALLING OR PRESSING CALL LIGHT BUTTON WHEN A SEIZURE LIKE ACTIVITY IS ABOUT TO START. STILL AWAITING FOR BED AVAILABILITY UP IN [facility] TO TRANSFER, NO BED AVAILABLE AT THIS TIME. PT NOW IN BED RESTING WITH CPAP IN PLACE. WILL CONTINUE TO MONITOR
--- NOTE | 2022-09-03 17:57 | NUR ---
PT SUMMARY: SEE LOG FOR SEIZURE ACTIVITIES ON PRIOR NOTE. FAMILY WAS UPSET WHEN DAUGHTER SAILAJA WAS INSTRUCTED TO NOT ENTER PT'S ROOM PER PT'S REQUEST PT WAS NEEDING REST AND LESS STIMULATION, DAUGHTER REQUESTED PT'S ADVOCATE SINCE NO ONE IS AVAILABLE TODAY NURSING YARDING ENGINEER MARCO LARA RN WAS ABLE TO SPEAK TO THE DAUGHTER. DR JOHNSON ALSO HAD A DISCUSSION WITH BOTH DAUGHTER AND SON, STILL PUSHING TO GET PT OUT OF HERE AND TAKE UP IN [place] AT [facility], AND PT REFUSED TO GO AND IS WILLING TO WAIT UNTIL A BED IS AVAILABLE FOR MORE SAFETY AND SECURITY REASONS. EVERYTHING WAS DISCUSSED IN THE PT'S ROOM WITH AN THRESHER BROOMCORN, DAUGHTER SAILAJA AND SON ADELINA, DR JOHNSON THIS RN AND THE NURSING YARDING ENGINEER, ALL QUESTIONS WAS ANSWERED BY DR JOHNSON FAR TAKING THE PT VIA PRIVATE AMBULANCE AND WAS EXPLAINED THE NEED TO SIGN AMA FORM. DAUGHTER STILL REMAINED UPSET THE PT STILL DECIDED TO STAY UNLESS AN AMBULANCE IS AVAILABLE WHICH THE SON ADELINA REASSURED THAT HE ALREADY HAD CONTACT TO PROVIDE PRIVATE AMBULANCE. DAUGHTER THEN WALKED OUT OF THE ROOM SAYING "IM DONE! IM DONE IN HERE!" NURSING YARDING ENGINEER FOLLOWED THE DAUGHTER TO EXPLAIN THE NEED FOR HER TO COOPERATE AND RESPECT PT'S DECISION AND ASKED TO CALM DOWN DAUGHTER YELLED "YOU DONT ASK ME TO F*CKING CALM DOWN! ITS MY F*CKING MOTHER YOU DONT KNOW HOW IT FEELS!" SON ACCOMPANIED THE DAUGHTER OUT OF THE UNIT DUE TO BEHAVIOR. PT'S FAMILY DIDNT COME BACK TIL THE END OF THE SHIFT. PT STILL CONTINUES TO HAVE SEIZURE LIKE ACTIVITY EPISODES, SEE LOG FOR MORE INFO
--- NOTE | 2022-09-03 21:55 | NUR ---
CONVULSIONS / SEIZURE LIKE EPISODES CALLED TO PATIENT ROOM FOR ONSET OF CONVULSIONS / SEIZURE LIKE ACTIVITY DOCUMENTED HERE: 21:04 - 210 SECONDS: NOT WITNESSED BY THIS RN, ADVISED SAME 21:12 EPISODE 21:10 - 20 SECONDS: HEAD TREMORS INTO HEAD & NECK RAPID MOVEMENT SIDE TO SIDE 21:12 - 40 SECONDS: HEAD & NECK RAPID MOVEMENT SIDE TO SIDE, BLE TREMORS 21:15 - 110 ECONDS: HEAD TREMORS INTO HEAD & NECK RAPID MOVEMENT SIDE TO SIDE FENTANYL ADMINISTERED FOR 10/10 PAIN TO HEAD AND MID-BACK PATIENT WAS AWARE OF ONCOMING EPISODES PRIOR TO EACH EPISODE AND WAS ABLE TO SIGNAL THE ONSET TO THE STAFF BY WAVING HER FINGERS. NO LOSS OF CONSCIOUSNES NO BOWEL OR BLADDER INCONTINENCE. NO POSTICTAL PHASE. NO LOSS OF AWARENESS OF WHAT IS OCCURING NOR OF STAFF BEING AT BEDSIDE. IN ADDITION TO PAIN IN HEAD AND NECK, WHICH HAS BEEN A CONSTANT THE PAST FOUR NIGHS THIS RN HAS BEEN WITH THIS PATIENT, MS. ARNETT REPORTS NEW PAIN TO MID-BACK THAT SHE DESCRIBES FEELING TIGHT AND LIKE A MUSCLE SPASM. NO COMPLAINT OF PAIN OR TINGLING SHOOTING DOWN BOTH LEGS THAT WAS REPORTED ON PREVIOUS NIGHTS. MS. ARNETT APPEARS TO BE RESTING COMFORTABLY NOW, CPAP IN PLACE. WILL CONTINUE TO MONITOR
--- NOTE | 2022-09-04 17:36 | NUR ---
SHIFT SUMMARY; ASSUMED CARE AT 0700. A/A/OX4. DEAF AT BASELINE, COMMUNICATES THROUGH INTERRPRATURE, WRITES NOTES, AND USES SIGN LANGUAGE BOARD. REPORTS PAIN TO LOW BACK RADIATING DOWN LEGS, MEDICATED FOR PAIN PER EMAR. SEVERAL EPISODES DURING SHIFT OF CONVULSING, SHAKING HEAD, CLINCHING FISTS. USES CALL LIGHT APPROX 1 MIN PRIOR TO EPISODES, WHEN ENTERING ROOM AFTER CALL LIGHT IS USED, PT IS FOUND CONVULSING IN BED. EPISODE LASTS APPROX 1 MIN THEN POINTS TO NOTE PAD WHERE THE EPISODES ARE DOCUMENTED AND MOTIONS TO WRITE DOWN THE TIME. PT IS VERY CONCERNED THAT THESE EPISODES ARE DOCUMENTED. FAMILY AT BEDSIDE DURING SHIFT. EPISODES SEEM TO INCREASE IN FREQUENCY WHEN FAMILY AND WHEN DR. DIAZ IS PRESENT. NO POSTICAL STATE NOTED. AFTER EPISODE ASKS FOR PAIN MEDICINE FOR HEAD PAIN EACH TIME. FEEDS SELF WITHOUT DIFFICULTY, REPOSITIONS IN BED, WALKS TO BATHROOM WITH WALKER AND STANDBY ASSIST. WILL CONTINUE TO MONITOR AND TREAT UNTIL CHANGE OF SHIFT.
[2022-09-05 05:17] LABS: BASOPHILS ABSOLUTE AUTO 0.07 K/mm3 (0.00-0.23); BASOPHILS PERCENT AUTO 1 % (0-2); EOSINOPHILS ABSOLUTE AUTO 0.14 K/mm3 (0.00-0.68); EOSINOPHILS PERCENT AUTO 1 % (0-6); Hematocrit 39.7 % (33.0-51.0); Hemoglobin 13.2 g/dL (11.5-16.0); IMMATURE GRAN ABSOLUTE AUTO 0.05 K/mm3 (0.00-0.10); IMMATURE GRAN PERCENT AUTO 0 % (0-1); LYMPHOCYTES ABSOLUTE AUTO 1.62 K/mm3 (0.84-5.20); LYMPHOCYTES PERCENT AUTO 15 % (21-46); MONOCYTES PERCENT AUTO 11 % (4-13); Mean Corpuscular HGB 29.8 pg (26.0-34.0); Mean Corpuscular HGB Conc 33.2 g/dL (31.5-36.5); Mean Corpuscular Volume 90 fL (80-100); Mean Platelet Volume 10.3 fL (9.1-12.4); NEUTROPHILS ABSOLUTE AUTO 8.05 K/mm3 (1.96-9.15); NEUTROPHILS PERCENT AUTO 72 % (41-73); Platelet Count 262 K/mm3 (150-400); RDW Coefficient Variation 13.3 % (11.7-14.2); RDW Standard Deviation 44.1 fL (35.1-46.3); Red Blood Cell Count 4.43 M/mm3 (3.80-5.20); White Blood Cell Count 11.13 K/mm3 (4.00-11.30)
[2022-09-05 05:50] LABS: Calcium, Blood 9.4 mg/dL (8.5-10.1); Creatinine, Blood 1.25 mg/dL (0.40-1.00); Potassium, Blood 4.9 mmol/L (3.5-5.5)
--- NOTE | 2022-09-05 06:09 | NUR ---
THIS AUTHOR TOOK OVER PATIENT CARES SHORTLY AFTER MIDNIGHT. UNEVENTFUL SHIFT WITH NO SEIZURE ACTIVITY OF THE TIME OF THIS NOTE. PATIENT HAS REMAINED ON CPAP WHILE SLEEPING. VSS. SR WITH RATES IN THE 60S. REQUESTED ONE DOSE OF PRN PAIN MEDICATION. HER POWERGLIDE IV DOES NOT DRAW. AM DOSE OF PRILOSEC NOT GIVEN PATIENT ASLEEP WITH CPAP MASK ON. WILL DEFER TO DAY SHIFT.
--- NOTE | 2022-09-05 11:07 | NUR ---
Update This RN was called to the room by comic artist. Pt signed that they were about to have a seizure. Pt signed that they feel a severe pain that starts in the lower back and spreads along the spine to skull base. Pt's head began to shake in a "no" motion, after 20-30 seconds both arms and core began to shake. This RN activated an ammonia salt inhalant and held it 1/2 inch below the nares. All motion ceased and the pt signed "that stuff stinks, it made my eyes water."
--- NOTE | 2022-09-05 18:12 | NUR ---
Shift Summary Pt has been resting in room. Pt was up to the restroom for a shower, family assisted. Pt spent some time up in a chair in the afternoon. Pt had several pseudoseizure episodes that were witnessed by the provider, this RN, interpreter translator and family. Pt continued to have significant pain to the lower back and along the spine that was not managed well with medications or non-pharmacologic interventions. All vital signs remained stable and within trend for the pt. This RN and the provider addressed questions and concerns of family members.
--- NOTE | 2022-09-05 19:48 | NUR ---
Assumed care at 1900. Pt resting in bed at this time. Communicating through sign language. Pt c/o 10 out of 10 back pain, medicated per EMAR. Denies any other needs. Vital signs stable, will continue to monitor.
[2022-09-06 04:37] LABS: BASOPHILS ABSOLUTE AUTO 0.06 K/mm3 (0.00-0.23); BASOPHILS PERCENT AUTO 1 % (0-2); EOSINOPHILS ABSOLUTE AUTO 0.22 K/mm3 (0.00-0.68); EOSINOPHILS PERCENT AUTO 3 % (0-6); Hematocrit 39.1 % (33.0-51.0); Hemoglobin 12.7 g/dL (11.5-16.0); IMMATURE GRAN ABSOLUTE AUTO 0.04 K/mm3 (0.00-0.10); IMMATURE GRAN PERCENT AUTO 1 % (0-1); LYMPHOCYTES ABSOLUTE AUTO 2.02 K/mm3 (0.84-5.20); LYMPHOCYTES PERCENT AUTO 27 % (21-46); MONOCYTES ABSOLUTE AUTO 0.96 K/mm3 (0.16-1.47); MONOCYTES PERCENT AUTO 13 % (4-13); Mean Corpuscular HGB 29.5 pg (26.0-34.0); Mean Corpuscular HGB Conc 32.5 g/dL (31.5-36.5); Mean Corpuscular Volume 91 fL (80-100); Mean Platelet Volume 10.4 fL (9.1-12.4); NEUTROPHILS ABSOLUTE AUTO 4.16 K/mm3 (1.96-9.15); NEUTROPHILS PERCENT AUTO 56 % (41-73); Platelet Count 232 K/mm3 (150-400); RDW Coefficient Variation 13.6 % (11.7-14.2); RDW Standard Deviation 45.5 fL (35.1-46.3); White Blood Cell Count 7.46 K/mm3 (4.00-11.30)
[2022-09-06 04:52] LABS: Calcium, Blood 9.1 mg/dL (8.5-10.1)
--- NOTE | 2022-09-06 06:10 | NUR ---
Shift summary. Pt rested in bed throughout shift, up to bathroom several times and to ambulate around room. Pt easily ambulates independently with walker. PRN pain meds given per EMAR for back/knee pain. Vital signs stable, no acute changes during shift. See assessment for further details. Will continue to monitor and report off to dayshift RN.
--- NOTE | 2022-09-06 17:30 | NUR ---
Shift Summary Pt has been resting in room throughout the day. Pt has been up to the restroom by standby assist when requested. Pt has had three episodes of pseudoseizure activity. Pt has continued to c/o 7/10 pain despite medication. Pt has repositioned self frequently for comfort. This RN has encouraged distraction and heat therapy as an adjunct for pain management. All vital signs remain stable.
--- NOTE | 2022-09-07 01:08 | NUR ---
UPDATE PT'S BP'S WERE NOTED TO BE SOFT RANGING FROM THE LOW 90'S TO UPPER 80'S SBP AND MAP BELOW 65. DR. VORA NOTIFIED AND ONE TIME BOLUS OF 500NS WAS ORDERED. FLUID GIVEN PER EMAR, WILL CONTINUE TO ASSESS EFFECTIVNESS OF FLUID BOLUS
--- NOTE | 2022-09-07 01:40 | NUR ---
UPDATE PT'S PRESSURE HAD MINIMAL REPSONSE TO 500ML BOLUS OF NS. DR. VORA NOTIFIED AND ANOTHER 500ML BOLUS WAS ORDERED WELL 1L OF NS IN ATTEMPT MAINTAIN BP.
[2022-09-07 04:15] LABS: BASOPHILS ABSOLUTE AUTO 0.06 K/mm3 (0.00-0.23); BASOPHILS PERCENT AUTO 1 % (0-2); EOSINOPHILS ABSOLUTE AUTO 0.24 K/mm3 (0.00-0.68); EOSINOPHILS PERCENT AUTO 4 % (0-6); Hematocrit 35.3 % (33.0-51.0); Hemoglobin 11.7 g/dL (11.5-16.0); IMMATURE GRAN ABSOLUTE AUTO 0.07 K/mm3 (0.00-0.10); IMMATURE GRAN PERCENT AUTO 1 % (0-1); LYMPHOCYTES ABSOLUTE AUTO 2.23 K/mm3 (0.84-5.20); LYMPHOCYTES PERCENT AUTO 38 % (21-46); MONOCYTES ABSOLUTE AUTO 0.74 K/mm3 (0.16-1.47); MONOCYTES PERCENT AUTO 13 % (4-13); Mean Corpuscular HGB 29.9 pg (26.0-34.0); Mean Corpuscular HGB Conc 33.1 g/dL (31.5-36.5); Mean Corpuscular Volume 90 fL (80-100); Mean Platelet Volume 10.7 fL (9.1-12.4); NEUTROPHILS ABSOLUTE AUTO 2.56 K/mm3 (1.96-9.15); NEUTROPHILS PERCENT AUTO 43 % (41-73); Platelet Count 227 K/mm3 (150-400); RDW Coefficient Variation 13.6 % (11.7-14.2); Red Blood Cell Count 3.91 M/mm3 (3.80-5.20)
[2022-09-07 04:41] LABS: Bun/Creatinine Ratio 15.3 (12.0-20.0); Calcium, Blood 8.6 mg/dL (8.5-10.1); Creatinine, Blood 0.98 mg/dL (0.40-1.00); Potassium, Blood 4.6 mmol/L (3.5-5.5)
--- NOTE | 2022-09-07 05:12 | NUR ---
SHIFT SUMMARY PT IS A/Ox4 AND FOLLOWS DIRECTIONS GIVEN BY MEMBERS OF STAFF. PT HAD ONE SEIZURE LIKE EPISODE AT THE START OF THE SHIFT, BUT NONE SINCE. PT SLEPT T/O MOST OF THE SHIFT WITH THE OCCASIONAL TRIP TO THE BATHROOM. PT'S PRESSURES DID DROP JUST BEFORE MIDNIGHT. WAS NOTIFIED AND FLUID REPLACEMENT THERAPY WAS INITIATED TO STABLIZE PT'S BLOOD PRESSURE. OF THIS NOTE, PT BP HAVE STABLIZED WITH SBP RANGING IN THE 100'S. HR REMAINED STABLE T/O THE SHIFT EVEN WITH THE LOW BP'S. PT COMMUNICATED SHE WAS ASYMPOMATIC, BUT FELT A LITTLE DIZZY JUST BEFORE HER PRESSURES RECOVERED. PT MAINTAINS SPO2 >95% ON RA WITH NO SOB OR DYSPNEA NOTED. POSSIBLE DC 09/07. NADN T/O THE SHIFT
[2022-09-07] MEDS ORDERED: BACL10 PO (11:32)
[2022-09-07] MEDS ORDERED: TRAZ50 PO (11:33)
[2022-09-07] MEDS ORDERED: Percocet 10-321 EACH PO (11:34)
--- NOTE | 2022-09-07 16:56 | NUR ---
DISCHARGE SUMMARY Pt was transported to personal vehicle by wheelchair. All personal belongings were in the possession of a family member at the time of transport. All questions and concerns were addressed prior to transport, phone numbers for the unit and PCP were provided for further concerns and questions.
--- NOTE | 2022-09-08 09:23 | NUR ---
BACK DATE WASTE ON 09/01 PT HAD MULTIPLE EPISODES OF SEIZURE-LIKE EPISODE THAT HAD OREDERS FOR 1-2MG OF MORHINE TO BE GIVEN DURING THE EPISODE. PT HAD EPISODES AT 0930,0936, 1019, 1033, AND 1741. 2MG MORPHINE WAS GIVEN PER ORDERS. 2MG WHICH WAS 1/2 MIL WAS WASTED EACH TIME. CHARGE NURSE SRUTHI LUNSFORD WITNESSED EACH WASTE MED WAS GIVEN WHILE IN PT ROOM, THIS RN MISSED ONE OF THE WASTE IN [facility].PHARMACY WAS CONTACTED ABOUT MISSED WASTE.
== END 2022-09-07 14:00 | disposition home health service (06) | DRG 880 ==
LOC: ER 14:10 → PCU 14:11
PROVIDERS: Emergency Medicine; Family Medicine; Hospitalist; Student in an Organized Health Care Education/Training Program; ADMIT Internal Medicine
DX: F44.5 Conversion disorder with seizures or convulsions (principal); Z20.822 Contact with and (suspected) exposure to COVID-19; I10 Essential (primary) hypertension; N30.90 Cystitis, unspecified without hematuria; M54.9 Dorsalgia, unspecified; H91.90 Unspecified hearing loss, unspecified ear; F41.8 Other specified anxiety disorders; N39.41 Urge incontinence; K21.9 Gastro-esophageal reflux disease without esophagitis; J45.909 Unspecified asthma, uncomplicated; G47.33 Obstructive sleep apnea (adult) (pediatric); G89.4 Chronic pain syndrome; Z87.19 Personal history of other diseases of the digestive system; Z98.890 Other specified postprocedural states
CPT/HCPCS: 36415; 70450; 71045; 72125; 80048; 80053; 80177; 81001; 83605; 83735; 84146; 84443; 85025; 87086; 93005; 93010; 94640; 94660; 94664; 94760; 94762; 95819; 96365; 96372; 96375; 96376; 97162; 97165; 97530; 99285-25; A9270; C1751; G0378; J0696; J1650; J1885; J1953; J2060; J2270; J2405; J3010; J3360; J3475; J7030; J7040; J7050; U0004

== ENCOUNTER → 2023-01-09 | Outpatient (CLI) | payer MEDICARE, OTHER ==
[~2023-01-09] MED LIST changes: +ALBU90OI INH; +BACL10 PO; +FLUT1DIS2 INH; +MYRBETRIQ50 MG PO; +Percocet 10-321 EACH PO; +TRAZ50 PO
[2023-01-16 11:12] LABS: CARBOXY-THC 12 (.)
== END | disposition home or self-care (01) ==
LOC: LAB SHORT 14:31 → LAB 14:31
PROVIDERS: Family Medicine
DX: Z51.81 Encounter for therapeutic drug level monitoring (principal); Z79.899 Other long term (current) drug therapy
CPT/HCPCS: G0480

== ENCOUNTER → 2023-10-22 | Outpatient (CLI) | payer MEDICARE, OTHER ==
[2023-10-27 06:41] LABS: 6-ACETYLMORPHINE, URN, QUANT <10 ng/mL; CODEINE, URN, QUANT <20 ng/mL; HYDROCODONE, URN, QUANT <20 ng/mL; HYDROMORPHONE, URN, QUANT <20 ng/mL; MORPHINE, URN, QUANT <20 ng/mL; NORHYDROCODONE, URN, QUANT <20 ng/mL; NOROXYCODONE, URN, QUANT 336 ng/mL; NOROXYMORPHONE, URN, QUANT 60 ng/mL; OXYCODONE, URN, QUANT 40 ng/mL; OXYMORPHONE, URN, QUANT <20 ng/mL
== END ==
LOC: LAB 10:23 → LAB SHORT 10:23
PROVIDERS: Family Medicine
DX: Z51.81 Encounter for therapeutic drug level monitoring (principal); Z79.899 Other long term (current) drug therapy
CPT/HCPCS: G0480

== ENCOUNTER → 2024-05-30 | Outpatient (CLI) | payer MEDICARE, OTHER ==
[2024-06-04 11:02] LABS: 6-ACETYLMORPHINE, URN, QUANT <10 ng/mL; CODEINE, URN, QUANT <20 ng/mL; HYDROCODONE, URN, QUANT <20 ng/mL; HYDROMORPHONE, URN, QUANT <20 ng/mL; MORPHINE, URN, QUANT <20 ng/mL; NORHYDROCODONE, URN, QUANT <20 ng/mL; NOROXYCODONE, URN, QUANT <20 ng/mL; NOROXYMORPHONE, URN, QUANT <20 ng/mL; OXYCODONE, URN, QUANT <20 ng/mL; OXYMORPHONE, URN, QUANT <20 ng/mL
== END ==
LOC: LAB SHORT 15:03 → LAB 15:03
PROVIDERS: Family Medicine
DX: Z51.81 Encounter for therapeutic drug level monitoring (principal); Z79.899 Other long term (current) drug therapy
CPT/HCPCS: G0480

== ENCOUNTER 2024-09-16 11:20 | Day surgery (SDC) | payer MEDICARE, OTHER ==
[~2024-09-16] VITALS: Ht 160 cm; Wt 97.4 kg
[~2024-09-16 11:20] MED LIST changes: +FentaNYL Citrate 50 MCG/ML 2 ML Injection ONE; +Midazolam HCl 1MG / ML 2ML Vial ONE; +Ropivacaine 0.5% HCL/PF 5 MG/ML 30ML Vial ONE
[2024-09-16] MEDS ORDERED: Tranexamic Acid 100 ML IV ONE (11:31)
[2024-09-16] MEDS ORDERED: CeFAZolin Sodium 2,000 MG VIAL ONE (11:34)
[2024-09-16] MEDS ORDERED: NS 50 ML IV ONE (11:35)
[2024-09-16] MEDS ORDERED: propofoL 20 ML IV ONE (11:55)
[2024-09-16] MEDS ORDERED: ESCI10 PO (12:13)
[2024-09-16] MEDS ORDERED: ATORVASTATIN CA20 MG PO (12:13)
[2024-09-16] MEDS ORDERED: Lactated Ringer's 1,000 ML IV ONE (12:32)
--- NOTE | 2024-09-16 12:37 | NUR ---
09/16/24 1237 Rosa Crain PRESENT FOR ADMISSION, ONLY QUESTIONS FOR DR. FRAGOSO AND WHAT MEDICATION HE WILL BE USING
[2024-09-16] MEDS ORDERED: Baclofen 10 MG Tab PO ONE (12:50)
[2024-09-16] MEDS ORDERED: Rocuronium Bromide 10 MG/ML 5ML Injection IV ONE (13:20)
[2024-09-16] MEDS ORDERED: ePHEDrine Sulfate 50 MG/ML 1ML Injection ONE (13:34)
[2024-09-16] MEDS ORDERED: Lidocaine 1%-Epineph 1:100000 20 ML MDV INJ ONE (13:55)
[2024-09-16] MEDS ORDERED: Sugammadex Sodium 200 MG/2ML SDV (100 MG/ML) ONE (14:33)
[2024-09-16 15:20] VITALS: BP 118/79
--- NOTE | 2024-09-16 16:51 | NUR ---
09/16/24 1651 Wesly Rader PT COMPLAINED OF 9/10 PAIN WHILE DRESSING UPPER BODY. SHE STATED PAIN RESOLVED AFTER SLING WAS LOOSENED. SHE DENIED PAIN AND NAUSEA AT TIME OF D/C. SHE APPEARED RELAXED AND ALERT. SHE EXPRESSED READINESS TO RETURN HOME AND APPRECIATION FOR HER CARE. ALS TRAFFIC PERSONNEL SUPERVISOR WAS USED THROUGHOUT STAY IN SDU.
--- NOTE | 2024-09-16 17:04 | NUR ---
09/16/24 1704 Wesly Rader INTERPRETER USED THROUGHOUT PACU.
== END 2024-09-16 16:25 | disposition home or self-care (01) ==
LOC: ORSCSDS 11:20
PROVIDERS: Orthopaedic Surgery Sports Medicine
PROC: 0RBK4ZZ Excision of Left Shoulder Joint, Percutaneous Endoscopic Approach (ICD-10-PCS; 2024-09-16)
PROC: 0RJK4ZZ Inspection of Left Shoulder Joint, Percutaneous Endoscopic Approach (ICD-10-PCS; principal; 2024-09-16 12:45)
DX: M75.102 Unspecified rotator cuff tear or rupture of left shoulder, not specified as traumatic (principal); M75.112 Incomplete rotator cuff tear or rupture of left shoulder, not specified as traumatic; I10 Essential (primary) hypertension; G47.33 Obstructive sleep apnea (adult) (pediatric); R56.9 Unspecified convulsions; H91.3 Deaf nonspeaking, not elsewhere classified; E66.01 Morbid (severe) obesity due to excess calories; Z68.38 Body mass index [BMI] 38.0-38.9, adult; K21.9 Gastro-esophageal reflux disease without esophagitis; W19.XXXA Unspecified fall, initial encounter; J45.909 Unspecified asthma, uncomplicated; Z87.891 Personal history of nicotine dependence; Z79.899 Other long term (current) drug therapy
CPT/HCPCS: A9270; J0690; J2250; J2704; J2795; J3010

== ENCOUNTER → 2024-10-13 | Outpatient (CLI) | payer MEDICARE, OTHER ==
[~2024-10-13] MED LIST changes: +ATORVASTATIN CA20 MG PO; +ESCI10 PO; -FentaNYL Citrate 50 MCG/ML 2 ML Injection ONE; -Midazolam HCl 1MG / ML 2ML Vial ONE; -Ropivacaine 0.5% HCL/PF 5 MG/ML 30ML Vial ONE
== END | disposition home or self-care (01) ==
LOC: LAB SHORT 11:28 → LAB 11:28
DX: N39.46 Mixed incontinence (principal)
CPT/HCPCS: 87086

== ENCOUNTER → 2024-10-16 | Outpatient (CLI) | payer MEDICARE, OTHER | LOC: LAB 12:04 → LAB SHORT 12:04 | DX: N39.0 Urinary tract infection, site not specified (principal) | CPT/HCPCS: 87086 ==

== ENCOUNTER → 2025-07-16 | Outpatient (CLI) | payer MEDICARE, OTHER ==
[2025-07-16 19:52] LABS: Bacterial Vaginosis PCR Negative (NEGATIVE); Candida Group, PCR NOT DETECTED (NOT DETECT); Candida glabrata-krusei, PCR NOT DETECTED (NOT DETECT)
== END ==
LOC: LAB SHORT 12:00 → LAB 12:00
PROVIDERS: Nurse Practitioner Family
DX: R30.0 Dysuria (principal); N94.89 Other specified conditions associated with female genital organs and menstrual cycle
CPT/HCPCS: 81515; 87086

== ENCOUNTER → 2025-09-01 | Outpatient (CLI) | payer MEDICARE, OTHER ==
[2025-09-01 18:45] LABS: Bacterial Vaginosis PCR Negative (NEGATIVE); Candida Group, PCR NOT DETECTED (NOT DETECT); Candida glabrata-krusei, PCR NOT DETECTED (NOT DETECT)
== END | disposition home or self-care (01) ==
LOC: LAB 15:29 → LAB SHORT 15:29
PROVIDERS: Obstetrics & Gynecology
DX: Z01.419 Encounter for gynecological examination (general) (routine) without abnormal findings (principal); Z11.3 Encounter for screening for infections with a predominantly sexual mode of transmission
CPT/HCPCS: 81515; G0145

== ENCOUNTER 2025-09-08 11:11 | Day surgery (SDC) | payer MEDICARE, OTHER ==
[~2025-09-08] VITALS: Ht 157.5 cm; Wt 100.2 kg
[~2025-09-08 11:11] MED LIST changes: +Glycopyrrolate 0.2 MG/ML 1MLVIAL ONE; +Ondansetron HCl 2 MG / ML 2ML Vial ONE; +ePHEDrine Sulfate 50 MG/ML 1ML Injection ONE
[2025-09-08] MEDS ORDERED: Ventolin5 MG/1 ML (11:34)
[2025-09-08] MEDS ORDERED: ALBU8HFA2 (11:34)
[2025-09-08] MEDS ORDERED: ALBU90OI (11:35)
[2025-09-08 13:49] VITALS: BP 109/72
== END 2025-09-08 13:54 | disposition home or self-care (01) ==
LOC: ORSCSDS 11:11
PROVIDERS: Internal Medicine Gastroenterology
PROC: 0DJD8ZZ Inspection of Lower Intestinal Tract, Via Natural or Artificial Opening Endoscopic (ICD-10-PCS; principal; 2025-09-08 12:00)
DX: Z12.11 Encounter for screening for malignant neoplasm of colon (principal); Z86.0101 Personal history of adenomatous and serrated colon polyps; E78.5 Hyperlipidemia, unspecified; I10 Essential (primary) hypertension; J44.9 Chronic obstructive pulmonary disease, unspecified; J45.909 Unspecified asthma, uncomplicated; G47.33 Obstructive sleep apnea (adult) (pediatric); E66.01 Morbid (severe) obesity due to excess calories; Z68.41 Body mass index [BMI] 40.0-44.9, adult; Z79.899 Other long term (current) drug therapy
CPT/HCPCS: J2003; J2405; J2704; J7120

== ENCOUNTER → 2025-10-12 | Outpatient (CLI) | payer MEDICARE, OTHER ==
[~2025-10-12] MED LIST changes: +ALBU8HFA2; +ALBU90OI; -Glycopyrrolate 0.2 MG/ML 1MLVIAL ONE; -Ondansetron HCl 2 MG / ML 2ML Vial ONE; +Ventolin5 MG/1 ML; -ePHEDrine Sulfate 50 MG/ML 1ML Injection ONE
[2025-10-12 17:15] LABS: Source, Urine Clean Catch
[2025-10-12 18:59] LABS: Bilirubin, Urine Neg (Neg); Color, Urine Yellow (P-Yellow); Glucose Qualitative, Urine Neg (Neg); Ketones, Urine Neg (Neg); Leukocyte Esterase, Urine 1+ (Neg); Protein, Urine 2+ (Neg); Specific Gravity, Urine 1.020 (1.003-1.022); Urobilinogen, Urine 1+ (Normal)
[2025-10-12 19:10] LABS: White Blood Cells, Urine 0-2 /hpf (0-5)
== END ==
LOC: LAB SHORT 17:09 → LAB 17:09
PROVIDERS: Obstetrics & Gynecology
DX: R30.0 Dysuria (principal)
CPT/HCPCS: 81001; 87086